=== PATIENT | male | born 2000 | race Caucasian/White ===

== ENCOUNTER → 2019-12-10 08:55 | Outpatient (CLI) | payer OTHER, SELFPAY ==
[2019-11-20 09:25] VITALS: BMI 21.1
--- NOTE | 2019-12-10 16:22 | PFTCOMP_ITS ---
COMPLETE PULMONARY FUNCTION TEST INTERPRETATION Brief HPI: Patient is a 19 year old male, currently under the care of myself, who presents to [facility] for complete pulmonary function tests secondary to diagnosis of dyspnea. Respiratory therapist reports good effort and reproducible results. Interpretation: Forced expiration spirometry shows no large airways obstructive ventilatory defect with an FEV1 of 94% predicted. There is no significant bronchodilator response by strict ATS criteria. Spirograms are of good quality and plateau normally. The respiratory flow volume loop shows a normal pattern. Lung volumes by body plethysmography show a normal total lung capacity at 6.25 L, 92% predicted. All other lung volumes are within normal limits. Diffusion capacity by carbon monoxide is normal at 116% predicted. The airway resistance is normal. No previous pulmonary function tests were available for review. Impression: Normal complete PFT
== END ==
PROVIDERS: PCP Family Medicine; Referring Provider Nurse Practitioner Acute Care; Visit Provider Nurse Practitioner Acute Care
DX: R06.02 Shortness of breath (principal)
CPT/HCPCS: 94060; 94726; 94729

== ENCOUNTER → 2020-01-10 10:29 | Outpatient (CLI) | payer OTHER, SELFPAY ==
[2020-01-08 10:36] VITALS: BMI 21.9
[2020-01-08 13:08] LABS: Anion Gap 5 (5-15); BUN 19 mg/dL (7-18); BUN/Creat Ratio 23.3 RATIO (10-20); Calcium,Total 9.5 mg/dL (8.5-10.1); Chloride 108 mmol/L (98-107); Creatinine, Serum 0.81 mg/dL (0.70-1.30); EST Glomerular Filtration Rate 128 mL/min (>60); Est Glom Filt Rate - Afr Amer 155 mL/min (>60); Glucose 88 mg/dL (74-106); Potassium 4.4 mmol/L (3.5-5.1); Sodium Level 140 mmol/L (136-145)
[2020-01-08 15:36] LABS: BNP,B-Type NATRIURETIC PEPTIDE < 2.0 pg/mL (0-100)
--- NOTE | 2020-01-10 10:32 | ECHOD_ITS ---
Reason For Study: DYSPNEA Procedure This was a 2D Doppler, Color Flow transthoracic echocardiogram. Exam performed in department. Left Ventricle Normal LV size. Left ventricular systolic function is normal. The estimated ejection fraction is 60 %. Normal diastology for age. No regional wall motion abnormalities noted. Right Ventricle Normal RV size. Normal systolic function. Atria Normal left atrium. Normal right atrium. Mitral Valve Normal mitral valve. Tricuspid Valve Normal tricuspid valve. Mild tricuspid valve insufficiency. Pulmonary artery systolic pressure is 30 mmHg. Aortic Valve Normal aortic valve. Trisinus/trileaflet aortic valve. Pulmonic Valve Normal pulmonic valve. Great Vessels Normal aortic root. The pulmonary artery is normal size. Normal inferior vena cava. Pericardium/Pleural No pericardial effusion. MMode/2D Measurements & Calculations LVIDd: 4.6 cm IVSd: 0.82 cm Ao root diam: 2.8 cm LVIDs: 3.2 cm LVPWd: 0.84 cm RVDd: 3.8 cm FS: 30.6 % LAV(MOD-bp): 36.5 ml EDV(MOD-sp4): 96.3 ml EDV(MOD-sp2): 109.3 ml LAV(MOD-bp) Indexed: 20.8 ml/m2 ESV(MOD-sp4): 42.8 ml EF(MOD-sp2): 57.5 % LAV(MOD-sp2): 31.5 ml EF(MOD-sp4): 55.6 % LAV(MOD-sp4): 37.3 ml SV(MOD-sp4): 53.5 ml SV(MOD-sp2): 62.9 ml LA A4 area: 15.7 cm2 LA dimension(2D): 2.8 cm RA A4 area: 14.3 cm2 Time Measurements MV dec time: 0.19 sec Doppler Measurements & Calculations MV E max antonio: 61.9 cm/sec Lat Peak E' Antonio: 22.1 cm/sec Med Peak E' Antonio: 14.2 cm/sec MV A max antonio: 48.9 cm/sec E/E' lat: 2.8 E/E' med: 4.4 MV E/A: 1.3 Ao V2 max: 104.2 cm/sec LV V1 max: 95.0 cm/sec PA V2 max: 100.0 cm/sec Ao max P.3 mmHg LV V1 max P.6 mmHg TR max antonio: 252.9 cm/sec TR max P.6 mmHg Interpretation Summary Normal LV size. Left ventricular systolic function is normal. The estimated ejection fraction is 60 %. Normal diastology for age. Ordering Physician: Servando Tate Referring Physician: JOO VALIENTE Performed By: Lisa Person, JOSE DANIEL, RVT
== END ==
PROVIDERS: PCP Family Medicine; Referring Provider Internal Medicine Cardiovascular Disease; Visit Provider Internal Medicine Cardiovascular Disease
DX: R06.02 Shortness of breath (principal)
CPT/HCPCS: 36415; 80048; 83880; 93306

== ENCOUNTER → 2020-01-20 09:34 | Outpatient (CLI) | payer OTHER, SELFPAY ==
[2020-01-08 10:36] VITALS: BMI 21.9
--- NOTE | 2020-01-20 10:55 | STRESSREP ---
Stress Test Report Exercise stress test. 19-year-old man with a history of atypical chest discomfort. Stress EKG: Resting KG demonstrates normal sinus rhythm with a rate of 76 bpm normal intervals are noted resting blood pressures 112/62. Patient exercised according to regular [employer] protocol for total duration of 12 minutes the maximum heart rate attained was 190 bpm which was 95% of maximum predicted heart rate the maximum workload was 13.4 metabolic equivalents. At rest there were no ST or T wave changes noted to suggest ischemia at peak exercise upsloping ST changes only were noted with no meet the criteria for ischemia. No clinical angina was noted the test was terminated due to the target heart rate being achieved as well as leg discomfort. The resting blood pressure was 112/62 with a peak blood pressure 150/60 mmHg. Exercise stress test with no EKG criteria for ischemia at a high workload. No arrhythmias noted. No clinical angina.
== END ==
PROVIDERS: PCP Family Medicine; Referring Provider Internal Medicine Cardiovascular Disease; Visit Provider Internal Medicine Cardiovascular Disease
DX: R07.89 Other chest pain (principal); R06.02 Shortness of breath
CPT/HCPCS: 93017